=== PATIENT | female | born 1990 | race Caucasian/White ===

== ENCOUNTER 2024-10-23 04:51 | Inpatient (IN) | payer OTHER, BC, SELFPAY ==
[2024-10-23] VITALS (24 sets, daily range): BP systolic 124–165; BP diastolic 73–96; PULSE 75–99; RESP 16–18; TEMP 36.3–36.9; O2SAT 96–99; BMI 34.1
[2024-10-23] MEDS: Lactated Ringers 1,000 ML 999 ML IV (04:50)
[2024-10-23 04:58] LABS: ROM Internal Control Test YES-OK TO RESULT pt. (Internal QC)
[2024-10-23 04:59] LABS: ROM Patient Test POSITIVE (Negative); Record Kit Lot#, ROM+ K3358
[2024-10-23] MEDS: Penicillin G Pot 5,000,000 UNITS in 0.9% Normal Saline (100mL MB+) 100 ML 150 UNITS IV (05:16)
[2024-10-23 05:33] LABS: Absolute Lymphocyte Count 2.59 X10^3/uL (0.83-4.51); Absolute Neutrophil Count 6.2 X10^3/uL (2.0-7.7); Basophil# 0.02 X10^3/uL; Basophil% 0.2 % (0-1); Eosinophil# 0.01 X10^3/uL; Eosinophils% 0.1 % (0-5); Hematocrit 37.6 % (37-47); Hemoglobin 13.1 g/dL (12.0-15.0); Lymphocyte # 2.59 X10^3/ul (0.83-4.51); Lymphocyte % 26.6 % (19-41); Mean Corp Hgb Conc 34.8 g/dL (32-36); Mean Corpuscular Hgb 31.5 pg (27.0-32.0); Mean Corpuscular Volume 90.4 fL (81-99); Mean Platelet Vol. 11.2 fl (6.2-12.0); Monocyte# 0.87 X10^3/uL; Monocyte% 8.9 % (0-10); NRBC Flagged by Analyzer 0 % (0-5); Neutrophil # 6.24 X10^3/uL (2.7-7.7); Platelet Count 209 K/mm3 (150-450); RBC Distribution Width CV 13.3 % (11.6-14.6); RBC Distribution Width SD 43.6 fl (35.1-43.9); Red Blood Count 4.16 M/mm3 (4.2-5.4); White Blood Count 9.8 K/mm3 (4.4-11.0)
[2024-10-23] MEDS: Ondansetron 4 MG/2 ML Vial IV (05:41)
[2024-10-23 05:57] LABS: Alanine Aminotransfer ALT/SGPT 51 U/L (<=34); Creatinine, Serum 0.66 mg/dL (0.70-1.20); EST Glomerular Filtration Rate 119 (>60); Estimated Creatinine Clearance 136.64 ml/min (50-250); Syphilis Antibodies Nonreactive (Nonreactive)
[2024-10-23] MEDS: Lactated Ringers 1,000 ML 50 ML IV (05:59)
[2024-10-23] MEDS: Hydrocortisone Sod Succinate 100 MG/2 ML Vial IV (06:09)
[2024-10-23] MEDS: Betamethasone/Betamethasone 30 MG/5 ML Vial 12 MG IM (06:09)
--- NOTE | 2024-10-23 06:30 | HP.PCM_ITS ---
History and Physical Date of Admission: 10/23/24 34-year-old 7 para 0 with a EDC of 12/11/2024 at 33-0/7 weeks presents today complaining of spontaneous rupture membranes at approximately 2:30 AM. She also started having contractions about that time she was sleeping when her water broke. She has a high risk and lives out of town and was to deliver at a tertiary care center but started getting more uncomfortable and felt uncomfortable driving that far and came to our labor and delivery for evaluation. She denies any gross vaginal bleeding. She denies any new headache or visual changes. 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 SCN/PEDs and anesthesia notified On twice daily Lovenox, will not be able to get epidural may use other routine pain control measures Patient was initially planning a planned at tertiary care center but elects to labor now that she is an active labor Stress dose of steroids ordered Continue Synthroid and will taper steroids per her plan with endocrinology after delivery
[2024-10-23] MEDS: Oxytocin 15 Units/NS 250ml 15 UNITS/250 ML IV.SOLN 334 UNITS IV (06:50)
[2024-10-23 06:55] LABS: AST(SGOT) 35 U/L (<=31); Uric Acid 4.3 mg/dL (2.6-6.0)
[2024-10-23] MEDS: Lidocaine 1% (20 ml mdv) 20 ML Vial INFILT (06:57)
[2024-10-23] MEDS: HYDROmorphone 1 MG/ML Syringe IV (07:07)
[2024-10-23] MEDS: 0.9% Saline Lock 10 ML Syringe IV ×3 (07:07→12:47)
[2024-10-23] MEDS: Ketorolac 30 MG/ML Syringe IV (07:08)
[2024-10-23] MEDS: Oxytocin 15 Units/NS 250ml 15 UNITS/250 ML IV.SOLN 83 UNITS IV (07:25)
--- NOTE | 2024-10-23 07:25 | EX.PCM.OBVAG ---
Assessment & Plan (1) labor in third trimester: (2) (spontaneous vaginal delivery): (3) Single live : (4) Second degree perineal laceration: Maternal Data Information Final SHILO: 12/11/24 Gestational age: 33 0/7 Vaginal Delivery Maternal Presentation Maternal Presentation: Active Labor Vaginal Delivery Information Procedure Performed: Spontaneous Vaginal Delivery Surgeon/Practitioner: Janet Han Date of Procedure: 10/23/24 Pre-Procedure Diagnosis: labor Post-Procedure Diagnosis: same Type of anesthesia: Local with 1% Lidocaine (20 cc) Estimated Blood Loss: 200 Time of Delivery: 06:47 Findings Description of procedure: A vigorous female infant was delivered CAROLA over a second-degree perineal laceration. The remainder the infant was delivered with maternal pushing and gentle traction only in less than 15 seconds. The Pitocin infusion was initiated for active management of the third stage. The cord was clamped and cut after 1 minute. The infant was attended to by the waiting nursing staff and day trader. The placenta was delivered spontaneously and intact. The cervix and vagina were intact. 20 cc of local anesthetic was injected. The patient was given 1 dose of IV Dilaudid and IV Toradol for pain control. The second-degree perineal laceration was repaired with 3-0 Vicryl suture in a running standard fashion. Sponge and needle counts were correct. A vaginal sweep was completed by me. After chart review and discussing with the patient, appropriate home medications were ordered. We will continue the labetalol and Synthroid, Lovenox once a day instead of twice daily, prednisone which she will taper and contact endocrinology when she is released to find out the final taper but for now we will give 2 more doses of IV hydrocortisone and then start her on 70 mg of prednisone daily for 3 days. She states her kaiawhina kura kaupapa maori wanted to keep her on her Plaquenil. Continue Zoloft daily. Other medications will be DC'd. Procedure findings: Vigorous female infant Presentation: CAROLA Amniotic Membrane Rupture Type: Spontaneous Amniotic Fluid Description: Clear Placental Delivery Description: Spontaneous Placenta Disposition: Sent with transport team Cord Vessel Description: 3 Vessels Cord Entanglement: None Cord Gases: ABG and VBG A Gender: Female (1 minute): 8 (5 minute): 9 Delayed Cord Clamping: Yes Post Vaginal Deli Medications given after delivery: IV Pitocin Episiotomy Description: None Laceration: 2nd degree Complication Complications: No
[2024-10-23] MEDS: Sertraline 50 MG Tablet PO (09:37)
[2024-10-23] MEDS: Acetaminophen 500 MG Tablet 1000 MG PO ×3 (09:37→22:26)
[2024-10-23] MEDS: Levothyroxine 75 MCG Tablet PO (09:38)
[2024-10-23] MEDS: Hydroxychloroquine 200 MG Tablet PO ×2 (09:38→18:28)
[2024-10-23] MEDS: Labetalol 200 MG Tablet 300 MG PO ×3 (10:05→22:28)
[2024-10-23] MEDS: Enoxaparin 60 MG/0.6 ML Syringe SC (12:00)
[2024-10-23] MEDS: Ibuprofen 600 MG Tablet PO ×2 (12:45→20:27)
[2024-10-23] MEDS: Hydrocortisone Sod Succinate 100 MG/2 ML Vial 50 MG IV ×2 (12:47→17:45)
[2024-10-23] MEDS: Benzocaine/Lanolin/Aloe Vera 85 GM Spray 1 SPRAY TOPICAL (13:14)
[2024-10-23] MEDS: Senna/Docusate Sodium 1 Tablet PO (20:26)
[2024-10-24 02:38] VITALS: BP 114/75; PULSE 82; RESP 16; TEMP 36.6; O2SAT 98
[2024-10-24] MEDS: Ibuprofen 600 MG Tablet PO ×3 (02:40→22:09)
[2024-10-24] MEDS: Acetaminophen 500 MG Tablet 1000 MG PO ×2 (04:44→22:09)
[2024-10-24] MEDS: Labetalol 200 MG Tablet 300 MG PO ×3 (06:26→22:10)
[2024-10-24] MEDS: Levothyroxine 75 MCG Tablet PO (06:27)
[2024-10-24] MEDS: Sertraline 50 MG Tablet PO (09:19)
[2024-10-24] MEDS: Hydroxychloroquine 200 MG Tablet PO ×2 (09:19→17:07)
[2024-10-24] MEDS: predniSONE 10 MG Tablet 35 MG PO ×2 (09:19→17:07)
[2024-10-24 09:26] VITALS: BP 132/92; PULSE 104; RESP 16; TEMP 36.5
[2024-10-24] MEDS: Enoxaparin 60 MG/0.6 ML Syringe SC (12:44)
--- NOTE | 2024-10-24 14:02 | PCM.PN.OB ---
Subjective Subjective pain well controlled, average lochia. Ambulating and urinating without difficulty. + BM. Objective Data Objective Data Vital Signs: Vital Signs Temp Pulse Resp BP Pulse Ox O2 Del Method O2 Flow Rate 97.7 F L 104 H 16 132/92 H 98 Room Air 98 10/24/24 09:26 10/24/24 09:26 10/24/24 09:26 10/24/24 09:26 10/24/24 02:38 10/24/24 09:26 10/24/24 09:26 Oxygen Flow Rate (L/min) 98 Oxygen Delivery Method Room Air Weight: 92.986 kg Body Mass Index (BMI) 34.1 Intake & Output: Intake and Output for Last 24 Hours 10/22/24 10/23/24 10/24/24 23:59 23:59 23:59 Intake Total 2052.33 / 2052.33 Output Total 500 / 500 Balance 1552.33 / 1552.33 Lab / Micro Data 10/23/24 04:35 10/23/24 04:35 Micro: Microbiology 10/23/24 04:35 Genital vaginal Group B Streptococcus (PCR) - Final Physical Exam Narrative 1+ edema, 2+ DTRS, no clonus Const alert and no apparent distress Narrative: Fundus firm, below umbilicus. Assessment & Plan (1) Second degree perineal laceration: (2) (spontaneous vaginal delivery): (3) Chronic hypertension affecting : PLAN: cont. home meds, monitor. No signs/symptoms of preeclampsia at this time (4) Hypothyroid: PLAN: cont. 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 double dose po prednisone today and tomorrow, then back to 35 mg daily and contact prescriber about weaning down. (6) Heterozygous factor V Leiden mutation: PLAN: cont. lovenox 60 mg daily for 6 weeks after deliver PLAN: Plan , infant in SCN. Cont. routine care
[2024-10-24 14:46] VITALS: BP 137/79; PULSE 95; RESP 16; O2SAT 99
[2024-10-24 20:00] VITALS: BP 147/101; PULSE 84; RESP 16; TEMP 36.3; O2SAT 99
[2024-10-24 23:31] VITALS: BP 129/87
[2024-10-25 04:31] VITALS: BP 114/70; PULSE 92; RESP 16; TEMP 36.6; O2SAT 99
[2024-10-25] MEDS: Ibuprofen 600 MG Tablet PO (06:50)
[2024-10-25] MEDS: Levothyroxine 75 MCG Tablet PO (06:50)
[2024-10-25] MEDS: Labetalol 200 MG Tablet 300 MG PO (06:50)
[2024-10-25] MEDS: Acetaminophen 500 MG Tablet 1000 MG PO (06:51)
[2024-10-25 09:00] VITALS: BP 123/84; PULSE 106; RESP 20; TEMP 36.1
--- NOTE | 2024-10-25 09:04 | DS.PCM_ITS ---
Providers Date of Admission: 10/23/24 Primary Care Physician: Tarah Primary Care Phys Reason For Visit: VAGINAL DELIVERY Diagnosis Discharge Diagnosis (1) Second degree perineal laceration: Status: Acute Code(s): O70.1 - Second degree perineal laceration during delivery (2) (spontaneous vaginal delivery): Status: Acute Code(s): O80 - Encounter for full-term uncomplicated delivery (3) Chronic hypertension affecting : Status: Chronic Code(s): O10.919 - Unspecified pre-existing hypertension complicating , unspecified trimester (4) Hypothyroid: Status: Acute Code(s): E03.9 - Hypothyroidism, unspecified (5) supervisor intermediates systemic steroid user: Status: Acute Code(s): Z79.52 - snf (current) use of systemic steroids (6) Heterozygous factor V Leiden mutation: Status: Acute Code(s): D68.51 - Activated protein C resistance Medications at Discharge Home Medications enoxaparin 60 mg/0.6 mL subcutaneous syringe 60 mg subcut BID ask provider 10/23/24 hydroxychloroquine 200 mg tablet 200 mg PO BID ask prov 10/23/24 levothyroxine 75 mcg tablet 75 mcg PO DAILY ask provid 10/23/24 loratadine 10 mg tablet (Allergy Relief (loratadine)) 10 mg PO DAILY ask provide 10/23/24 mecobalamin-levomefolate calcium-pyridoxal phos 2 mg-3 mg-35 mg tablet (Elfolate Plus) 1 tab PO BID ask provider 10/23/24 metformin 500 mg tablet,extended release 24 hr 500 mg PO DAILY ask provid 10/23/24 naltrexone 4.5 mg capsule (Naltrex) 4.5 mg PO QHS ask provid 10/23/24 prednisone 2.5 mg tablet 35 mg PO DAILY ask provider 10/23/24 progesterone micronized 200 mg capsule (Prometrium) 200 mg PO DAILY ask provid 10/23/24 sertraline 100 mg tablet 50 mg PO DAILY ask provid 10/23/24 tacrolimus 1 mg capsule, immediate-release 5 mg PO DAILY ask provider 10/23/24 acetaminophen 500 mg tablet 1,000 mg (2 x 500 mg) PO Q6H PRN PRN Pain 1-10 Or Fever #0 tabs 10/25/24 benzocaine 20 %-menthol 0.5 % topical aerosol (Dermoplast (with menthol)) 1 spray topical TID PRN PRN perineal discomfort #0 grams 10/25/24 ibuprofen 600 mg tablet 600 mg PO Q6H PRN PRN Pain Score 1-10 #0 tabs 10/25/24 labetalol 100 mg tablet 300 mg (3 x 100 mg) PO TID #270 tabs 10/25/24 Weight / BMI Weight Weight: 205 lb Body Mass Index (BMI) 34.1 ABG / Lab / Microbiology Data 10/23/24 04:35 10/23/24 04:35 Microbiology: Microbiology 10/23/24 04:35 Genital vaginal Group B Streptococcus (PCR) - Final D/C Instructions Discharge Diet: No restrictions Discharge Activity: Return to Normal Activity, May Drive, May Shower and May Take a Tub Bath May resume sexual activity in: 6 weeks Weight Bearing Status: Full weight bearing Call your doctor if you observe: Fever of 101 or Higher, Inability to urinate, Using more than 1 pad per hour, Shortness of breath, Chest pain, Increased palpitations (irregular heartbeat), Calf discomfort and Uncontrolled pain DC O2, CPAP, BIPAP Needs Home O2 Discharge instructions: No Please Follow Up With: Consuelo Alvarado CNM When: 2 week virtual visit and 6 week visit Meaningful Use Info Meaningful Use Meaningful Use Diagnoses (Choose all that apply): None applicable Ischemic Stroke Statin Dosing Therapy Reference: STATIN DOSE THERAPY REFERENCE: * Patients > 75 years receive moderate or high dose statin therapy. * Patients 75 years or YOUNGER should receive HIGH intensity statin dose unless contraindicated. You will be required to document reason for non-treatment if statin daily dose does not meet guidelines. HIGH DOSE STATIN THERAPY DAILY Atorvastatin > than or = to 40 mg Rosuvastatin > than or = to 20 mg Amlodipine + Atorvastatin > than or = to 2.5/40 mg Ezetimibe + Simvastatin 10/80 mg Simvastatin 80mg Discharge Plan Admission Admit Date/Time: 10/23/24 04:51 Primary Reason for Your Visit: Vaginal Delivery Attending Provider: Janet Han Primary Care Provider: Care Physician,No Primary Discharge Orders/Prescriptions Prescriptions: New acetaminophen 500 mg Tablet 1,000 mg PO Q6H PRN PRN (Reason: Pain 1-10 Or Fever) Qty: 0 0RF Dermoplast (with menthol) 20-0.5 % Aerosol 1 spray topical TID PRN PRN (Reason: perineal discomfort) Qty: 0 0RF Protocol: *Topical Application Instructions APPLICATION INSTRUCTIONS: ? 1 spray 3 times a day as needed for perineal discomfort ibuprofen 600 mg Tablet 600 mg PO Q6H PRN PRN (Reason: Pain Score 1-10) Qty: 0 0RF labetalol 100 mg tablet 300 mg PO TID Qty: 270 0RF Continued enoxaparin 60 mg/0.6 mL syringe 60 mg subcut BID hydroxychloroquine 200 mg tablet 200 mg PO BID levothyroxine 75 mcg tablet 75 mcg PO DAILY metformin 500 mg tablet extended release 24 hr 500 mg PO DAILY prednisone 2.5 mg tablet 35 mg PO DAILY sertraline 100 mg tablet 50 mg PO DAILY loratadine [Allergy Relief (loratadine)] 10 mg tablet 10 mg PO DAILY mecobal-levomefolat Ca-B6 phos [Elfolate Plus] 2-3-35 mg tablet 1 tab PO BID Naltrex 4.5 mg capsule 4.5 mg PO QHS Discontinued labetalol 300 mg tablet 300 mg PO TID aspirin [Adult Aspirin Regimen] 81 mg tablet,delayed release (DR/EC) 162 mg PO DAILY No Action tacrolimus 1 mg capsule 5 mg PO DAILY progesterone micronized [Prometrium] 200 mg capsule 200 mg PO DAILY Referrals / Follow Up: Care Physician,No Primary [Primary Care Provider] - Disposition Disposition (needs filled in before D/C Order can be placed): Home, Self Care
[2024-10-25] MEDS: Dibucaine 30 GM Tube 1 APPLIC TOPICAL (09:06)
--- NOTE | 2024-10-25 09:09 | PCM.PN.OB ---
Subjective Subjective Doing well per patient and nursing staff. Ambulating and taking PO without difficulty. Voiding and passing flatus. Pain controlled. , services for assistance. Denies headache, visual changes, chest pain, shortness of breath, leg pain or increased bleeding. Lochia normal. Objective Data Objective Data Vital Signs: Vital Signs Temp Pulse Resp BP Pulse Ox O2 Del Method O2 Flow Rate 98 F 92 16 114/70 99 Room Air 98 10/25/24 04:31 10/25/24 04:31 10/25/24 04:31 10/25/24 04:31 10/25/24 04:31 10/25/24 04:31 10/24/24 09:26 Oxygen Flow Rate (L/min) 98 Oxygen Delivery Method Room Air Weight: 205 lb Body Mass Index (BMI) 34.1 Intake & Output: Intake and Output for Last 24 Hours 10/23/24 10/24/24 10/25/24 23:59 23:59 23:59 Intake Total 2052.33 / 2052.33 Output Total 500 / 500 Balance 1552.33 / 1552.33 Lab / Micro Data 10/23/24 04:35 10/23/24 04:35 Micro: Microbiology 10/23/24 04:35 Genital vaginal Group B Streptococcus (PCR) - Final Physical Exam Const alert and oriented x3 General Appearance: cooperative Orientation / Consciousness: awake, oriented to person, oriented to place and oriented to time Exam Limitations: no limitations HEENT normocephalic Head and Scalp: normal to inspection, normocephalic and atraumatic Face and Sinus: normal facial exam Eyes General Eye: normal appearance of both eyes Neck full ROM Chest Chest: symmetrical chest wall rise Resp normal respiratory effort and normal air movement Auscultation: clear to auscultation bilaterally Cardio regular rate, regular rhythm, S1 normal heart sound, S2 normal heart sound, no murmurs, no rub, no gallops and no clicks GI normal to inspection, nondistended, normoactive bowel sounds and non-tender GI Narrative: Fundus firm 2 below U appearance of the vagina normal Narrative: Normal lochia rubra Bladder / Kidney Exam: no CVA tenderness Back/Spine normal ROM Extremity normal to inspection and full ROM Skin no rashes or lesions noted Neuro oriented x3, CN's II-XII intact bilaterally and moves all extremities Sensorium / Orientation: awake, alert and oriented to person Motor Exam: clonus absent Deep Tendon Reflexes: Rt Patellar (L4): 2+ and Lt Patellar (L4): 2+ Assessment & Plan (1) Second degree perineal laceration: (2) Single live : (3) (spontaneous vaginal delivery): PLAN: Plan 1) Routine care 2) Vitals signs stable 3) Pain controlled 4) , services PRN 5) D/C home 6) Follow up in 2 weeks and 6 weeks
[2024-10-25] MEDS: Hydroxychloroquine 200 MG Tablet PO (11:17)
[2024-10-25] MEDS: Sertraline 50 MG Tablet PO (11:17)
[2024-10-25] MEDS: predniSONE 10 MG Tablet 35 MG PO (11:17)
--- NOTE | 2024-10-25 12:55 | CASEMGMT ---
Social Work Assessment Labor and Delivery Unit Patient Address: [address] [place] [address] [place] [id number] Phone number: [phone] Date of Referral: 10/25/24 Time of Referral:? 711 Referred By: Dr. Han Date of Intervention: ?10/25/24? Time of Intervention:? 1129 Reason for Referral:? hx of depression on zoloft Sw completed chart review and acknowledges social work consult due to maternal mental health, as well as SCN consult due to baby being transferred to [facility]. Sw presented to bedside and introduced self to mother of baby (MOB- Anneliese) and father of baby (FOReymundo- Lb). Sw explained reason for sw involvement and completed psychosocial assessment. History obtained from: medical records, MOB and FOB Household composition: Currently residing in the family home is MOB and FOReymundo. baby to be included in residence when ready for discharge. Parents deny any housing concerns stating that their home is safe and secure. Patient's parent/guardian status:? ?Parents met each other in high school, and started dating after graduation. They have been for 11 years. No problems reported regarding domestic violence or intimate partner violence. Medical History: ?JAYRO is 34 year old female who is 7, para 0- now 1 following labor and delivery. JAYRO has experienced many losses due to medical diagnoses and fertility issues. JAYRO had fertility specialists in [place] and then transferred her care to [place]. JAYRO received intensive care throughout , many times multiple appointments in a week. JAYRO presented to labor and delivery after her water broke at home and contractions started soon after. JAYRO delivered baby via vaginal delivery at 33 weeks gestation on 10/23/24. Baby girl, named Mica Bustamante, was born weighing 4lb 7oz with apgars of 8 and 9 at one and five minutes of life, respectfully. JAYRO is providing breast milk for baby, and she will be followed by Dr. Zendejas for pediatrics. Baby required transfer to [facility] due to prematurity, no discharge date identified at this time. Parents were observed at bedside and involved in baby care. Educational Status:? 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 No problems with reading, learning or comprehension Financial Status: Both parents are gainfully employed outside of the home. ESTHER works for an [employer] as an aeronautical health services manager Infant Supplies:?? All necessary baby supplies obtained, including: car seat, safe sleep space, clothes, diapers and wipes Childcare/Caregiver(s):? JAYRO states that she is the primary caregiver to baby. When both parents have returned to work they have a family member that will provide childcare. Transportation:?? Both parents have their drivers license and reliable means of transportation, no barriers. Programs/Agencies Involved: ??Parents are over income for community resources that assist them financially. ? Children Services/Legal Issues:???No prior involvement with children services, no issues or concerns warranting referral to be made at this time. Behavioral Health Issues: ??Mental Health History:??ESTHER reports that he has experienced depression and anxiety in the past. ESTHER states that he was prescribed medication years ago, but has not taken medication to manage his mental health for a long time. ESTHER states that he believes that his mental health symptoms are improved and he does not struggle with depression or anxiety. JAYRO states that she has also been diagnosed with anxiety and depression, she is prescribed zoloft by her PCP. JAYRO states that she is also connected to a counselor that she talks to virtually on a regular basis. JAYRO states that she started to really struggle with her mental health when she experienced her second miscarriage. JAYRO reports that the medication is helpful and talking to her counselor has provided her with a lot of coping tools she would have not thought of on her own. ? Substance Use History: Parents deny substance use prior to and during ?? Family History:??Parents deny family history of substance use or significant mental health diagnoses. ??? Drug Screens: ??No drug screens observed while completing chart review. Family/Social Stressors:? JAYRO reports that she and her mom do not always get along, and there are times when she has to distance herself from her mom. JAYRO states that she has not yet told her mom that it is okay to come and visit with baby. JAYRO reports that she and FOB want some more time with just themselves and . Sw explained that she and FOB can take as much time as they need. Pradeep stated that there are visitation hours as well, and people are not allowed to visit outside of those visitation hours. Support Systems: JAYRO states that FOReymundo and paternal grandma are her biggest support people. Depression/Shaken Baby/Safe Sleeping:? Sw educated parents on signs and symptoms of baby blues and depression and anxiety. Sw explained that it would be normal for parents to experience some mental health symptoms during this period, due to their mental health history, their losses they have experienced in the past, and due to baby requiring SCN admission. MOB and FOB state that they have been discussing this amongst themselves. MOB states that she and FOB are good at communicating with each other about how they are feeling. Sw also discussed red flags and when it would be important to talk to her OBGYN. MOB and FOB express understanding. Sw educated parents on shaken baby prevention and ABCs of safe sleep, parents express understanding. ASSESSMENT:? MOB and baby admitted following labor and delivery. MOB and FOB have experienced losses prior to delivery. Baby was born at 33 weeks gestation and was transferred to [facility]. Parents have mental health history positive for anxiety/ depression. MOB is connected to mental health supports and is prescribed zoloft to help her manage her symptoms. Parents were welcoming of sw and engaging throughout completion of assessment. MOB was observed sitting in chair comfortably and was holding baby who was asleep during conversation. Parents discussed their fertility journey and how they feel at peace now that baby is here and she is healthy. MOB states that she is thankful that she was able to deliver baby at [facility] and that they can stay at the hospital while baby is admitted to [facility]. Sw encouraged parents to be at bedside as often as they are able and to also be active in care. Sw also encouraged parents to take time away from bedside/ hospital and to practice self care as there is no discharge date at this time. Parents express understanding. MOB states that she felt good mentally during . MOB states that she also feels happy now that baby is here, and at peace. MOB tearful at times throughout conversation, appropriately. Parents were talkative and appreciative. . PLAN:? No other services requested or indicated. MOB and baby to be discharged when medically ready. Parents were provided literature regarding: signs and symptoms of baby blues and mood and anxiety disorders, Help Me Grow, shaken baby prevention, ABCs of safe sleep and a list of county resources that are available for them should any needs present themselves. Kam Shipman, [facility], [facility]
== END 2024-10-25 11:30 | disposition home or self-care (01) | DRG 806 ==
LOC: WPOUT 05:04 → WP 05:04
PROVIDERS: Admitting Provider Obstetrics & Gynecology; Referring Provider Obstetrics & Gynecology; Visit Provider Obstetrics & Gynecology
DX: O60.14X0 Preterm labor third trimester with preterm delivery third trimester, not applicable or unspecified (principal); Z37.0 Single live birth; O99.12 Other diseases of the blood and blood-forming organs and certain disorders involving the immune mechanism complicating childbirth; O10.02 Pre-existing essential hypertension complicating childbirth; D68.51 Activated protein C resistance; E03.9 Hypothyroidism, unspecified; O70.1 Second degree perineal laceration during delivery; O99.284 Endocrine, nutritional and metabolic diseases complicating childbirth; Z79.890 Hormone replacement therapy; Z3A.33 33 weeks gestation of pregnancy; Z79.52 Long term (current) use of systemic steroids; N96 Recurrent pregnancy loss; O99.893 Other specified diseases and conditions complicating puerperium
CPT/HCPCS: 59025; 59050; 82565; 84112; 84450; 84460; 84550; 85025; 86780; 86850; 86900; 86901; 87081; 87653; 99221; A4216; G0378; J0702; J2405